=== PATIENT | male | born 1965 | race Two or more races ===

== ENCOUNTER 2025-02-22 19:23 | Emergency (ER) | payer MEDICAID, SELFPAY ==
[2025-02-22 19:25] VITALS: BMI 28.5
[2025-02-22 19:39] VITALS: BP 121/72; PULSE 106; RESP 18; TEMP 38.5; O2SAT 95
--- NOTE | 2025-02-22 20:01 | XR_ITS ---
Examination: CT chest with intravenous contrast CT abdomen with intravenous contrast CT pelvis with intravenous contrast 2-D coronal and sagittal reconstructions Time of exam: February 23, 2000 2503 hours INDICATIONS: Chest pain abdominal pain today CTDI: vol (mGy) : 8.68 DLP: (mGycm): 649 Technique: Multiple axial images of the chest, abdomen and pelvis with intravenous contrast, 3.0 mm slice thickness. Images obtained post intravenous injection Isovue 370 60 cc. 2-D sagittal and coronal reconstructions. Low dose protocols were performed. One or more of the following dose reduction techniques were used; automated exposure control, adjustment of the mA and/or KV according to patient size, use of iterative reconstruction technique. Findings: No thoracic aortic aneurysm dilatation No paratracheal tracheobronchial or bronchopulmonary adenopathy No pneumonia pulmonary edema or pleural disease No visualized liver or splenic lesion No gallstones Spleen is not enlarged No pancreatic or adrenal mass No renal or ureteral calculi, no hydronephrosis 8 mm fat-containing umbilical hernia Normal appendix No bowel obstruction No diverticulitis Prostatomegaly 3.5 cm Urinary bladder wall thickening up to 4 mm Small fat-containing umbilical hernia Grade 1 anterolisthesis of L4 on L5 IMPRESSION: No pneumonia, pulmonary edema or pleural disease No renal or ureteral calculi, no hydronephrosis. Normal appendix No bowel obstruction or diverticulitis Mild thickening of the urinary bladder wall, consider cystitis
--- NOTE | 2025-02-22 20:01 | XR_ITS ---
Examination: PA chest single view TECHNIQUE: Upright PA chest single view Examination date and time: February 22, 2025, 2031 hours INDICATION: Coughing for 4 days ago. FINDINGS: Normal heart size. No pneumonia or pulmonary edema. Mild osteopenia. IMPRESSION: No pneumonia or pulmonary edema
--- NOTE | 2025-02-22 20:43 | EDNOTE_ITS ---
Nausea/Vomit./Diarrhea-RME/HPI General Chief complaint: Flu Like Symptoms Stated complaint: COUGH, FEVER, DIARRHEA Time Seen by Provider: 02/22/25 20:00 Arrival date/time: 02/22/25 19:23 59M with no significant PMH presents to ED with 1 month of cough. Patient has not followed up with PCP, as he doesn't have one. Separately, patient went to [place] about 1.5 weeks ago and started having daily non-bloody diarrhea as well as fevers/chills. Limitations: no limitations Related Data Allergies Allergy/AdvReac Type Severity Reaction Status Date / Time No Known Allergies Allergy Verified 02/22/25 19:27 Review of Systems Review of Systems Systems Reviewed: All systems reviewed, normal except as documented Constitutional Constitutional: Reports system reviewed and no additional complaints, except as documented, Reports as per HPI, Reports chills, Reports fever(s) and Denies headache(s) ENT Ears, Nose, Mouth, and Throat: Denies disequilibrium and Denies headache(s) Cardiovascular Cardiovascular: Reports system reviewed and no additional complaints, except as documented, Denies chest pain and Denies dyspnea Respiratory Respiratory: Reports system reviewed and no additional complaints, except as documented, Reports as per HPI, Reports cough and Denies dyspnea Gastrointestinal Gastrointestinal: Reports system reviewed and no additional complaints, except as documented, Reports as per HPI, Reports abdominal pain, Reports diarrhea, Denies nausea and Denies vomiting Neurologic Neurologic: Reports system reviewed and no additional complaints, except as documented, Denies confusion, Denies disequilibrium and Denies headache(s) Psychiatric Psychiatric: Denies confusion Past Medical History Social History SMOKING STATUS: Never smoker ED Exam General Limitations: Present no limitations General appearance: Present alert and in no apparent distress Head Head exam: Present atraumatic Eye Eye exam: Present normal appearance, PERRL and EOMI ENT ENT exam: Present normal exam, normal oropharynx and mucous membranes moist Neck Neck exam: Present normal inspection, full ROM and trachea midline Chest Chest inspection: Present normal inspection and symmetric chest wall rise Respiratory Respiratory exam: Present normal lung sounds bilaterally Cardiovascular Cardiovascular exam: Present regular rate, normal rhythm and normal heart sounds Abdominal Exam Abdominal exam: Present soft, tenderness and normal bowel sounds Abdominal tenderness: Present mild Extremities Exam Extremities exam: Present normal inspection and full ROM Back Exam Back exam: Present normal inspection and full ROM Neurological Exam Neurological exam: Present alert, oriented X3 and CN II-XII intact Psychiatric Psychiatric exam: Present normal affect and normal mood Skin Skin exam: Present warm, dry, intact and normal color Course Quality Measures Possible source: pulmonary and GI tract/intra-abdominal Blood cultures ordered: yes Antibiotic ordered: Yes Pertinent labs: 02/22/25 20:39 Lactic Acid 0.9 mMol/L (0.4-2.0) Procalcitonin 0.14 ng/ml (0.0-0.49) sepsis and none Orders Category Date Time Status Bedside COVID-19 Antigen Test NOW Care 02/22/25 19:28 Completed Bedside Influenza A&B Antigen Test NOW Care 02/22/25 19:[address] Screening NOW Care 02/22/25 20:01 Completed Insert IV NOW Care 02/22/25 20:[address] chest abdomen pelvis w Stat Exams 02/22/25 20:01 Completed XR chest 1V portable Stat Exams 02/22/25 20:01 Completed Blood Culture (Lab) Stat Lab 02/22/25 20:44 Received CBC Stat Lab 02/22/25 20:39 Completed CMP [Comprehensive Metabolic Panel] Stat Lab 02/22/25 20:39 Completed Cocci Serology IgM with reflex to IgG [Cocci Serology, Lab 02/22/25 20:39 Received Unk History] Stat Lactate (Lactic Acid) Stat Lab 02/22/25 20:39 Completed Lipase Stat Lab 02/22/25 20:39 Completed Procalcitonin Stat Lab 02/22/25 20:39 Completed UA [Urinalysis] Stat Lab 02/22/25 21:45 Completed Urine Culture Stat Lab 02/22/25 21:45 Received Acetaminophen Tab [Tylenol ES Tab] Med 02/22/25 20:38 Discontinued 1,000 mg PO X1 ONE Sodium Chloride 0.9% 1000 ml [Ns] 1,000 ml Med 02/22/25 20:01 Discontinued IV 999 mls/hr cefTRIAXone/D5w 1gm IV premix [Rocephin/D5w 1gm IV Med 02/22/25 20:02 Discontinued premix] 1 gm in 50 ml IV X1 Vital Signs Vital signs: Vital Signs Temperature 101.3 F H 02/22/25 19:39 Pulse Rate 106 H 02/22/25 19:39 Respiratory Rate 18 02/22/25 19:39 Blood Pressure 121/72 02/22/25 19:39 Pulse Oximetry (%) 95 02/22/25 19:39 Oxygen Delivery Method Room Air 02/22/25 19:39 O2 at 95% on RA and WNLs Nausea/Vomiting/Diarrhea MDM Narrative MDM Narrative:: 59M with no significant PMH presents to ED with 1 month of cough. Patient has not followed up with PCP, as he doesn't have one. Separately, patient went to [place] about 1.5 weeks ago and started having daily non-bloody diarrhea as well as fevers/chills. Physical exam reveals clear lungs. Normal WOB. Mild gen ab tenderness. Patient is febrile, but does not appear toxic. Sepsis alert called. CXR unremarkable. CT unremarkable. No leukocytosis. Procal/lactate normal. CMP unremarkable. UA mild dehydration. Upon assessment, patient felt better and temp was reduced. Likely viral gastroenteritis. Patient was unable to provide stool sample, but states he will follow-up with PCP. Patient data External records reviewed:: None Clinical information provided by:: patient Social determinants that could affect healthcare access:: none Patient has the following chronic illnesses:: none How is presenting disease/condition affected by chronic disease/condition?: no chronic disease Evaluation data The following diagnostics were reviewed and interpreted by me:: lab results and radiology exam(s) Lab and/or radiology exams considered but not ordered:: ordered Interpretation Summary: above Medications / Prescriptions Medications / Prescriptions considered but not ordered:: ordered Medication administrations:: Medication Administration History Discontinued Medications Acetaminophen (Acetaminophen 500 Mg Tablet) 1,000 mg PO X1 ONE Stop: 02/22/25 20:39 Last Admin: 02/22/25 21:12 Dose: 1,000 mg Documented By: GHISLAINE Sodium Chloride (Ns) 1,000 mls @ 999 mls/hr IV .Q1H1M ONE Stop: 02/22/25 21:01 Last Infusion: 02/22/25 23:09 Dose: Infused Documented By: Admin: 02/22/25 21:46 Dose: 999 mls/hr Documented By: GHISLAINE Ceftriaxone Sodium/Dextrose (Rocephin/D5w 1gm Iv Premix) 1 gm in 50 mls @ 100 mls/hr IV X1 ONE Stop: 02/22/25 20:31 Last Infusion: 02/22/25 22:35 Dose: Infused Documented By: Admin: 04/25/25 21:44 Dose: 100 mls/hr Documented By: JE above Consultations Consultation(s) initiated? (list below): No Diagnosis Nausea Differential Diagnosis: traveler's diarrhea, food poisoning, ga stroenteritis, clostridium difficile infection, drug-induced nausea and vomiting, dehydration and other (URI, CAP, viral infection) Most likely diagnosis given after review of the tests above:: gastroenteritis Admission Indicated Admission indicated?: not indicated Admission Request Was there a request for admission?: No Disposition Plan Disposition Plan: Discharge Discharge Attestation Discharge Attestation: The patient and all family members were given an opportunity to ask questions and understood the discharge instructions. Discharge instructions specifically effects, indications for sooner follow up or return to the emergency department, and the expected course of current diagnosis. Patient condition: Stable Discharge Plan Plan Patient Disposition: HOME (Self Care) Disposition Comment: Stable Prescriptions/Referrals Referrals: No Primary/Family,Physician [Primary Care Provider] - In 1 week Problem List Clinical Impression: Gastroenteritis Patient/Caregiver Discharge Instructions Education Materials: ED Diarrhea, Viral (Adult) Additional Instructions: Please follow-up with PCP within 24-48 hours and return immediately if symptoms worsen. See PCP for stool testing. Print Language: [place] Stand Alone Forms: Patient Portal Info Letter MARCK/PIOTR Supervising Physician MARCK/PIOTR Supervising Physician: Dr. Yates
[2025-02-22 20:53] VITALS: BP 139/85; PULSE 102; RESP 24; TEMP 39.4; O2SAT 95
[2025-02-22 21:05] LABS: Lactate (Lactic Acid) 0.9 mMol/L (0.4-2.0)
[2025-02-22 21:07] LABS: Basophils # (Auto) 0.1 Thou/mm3 (0.0-0.2); Basophils % (Auto) 1 % (0-2.5); Eosinophils # (Auto) 0.3 Thou/mm3 (0.0-0.5); Eosinophils % (Auto) 3 % (0-10); Hematocrit 40.1 % (41.0-53.0); Hemoglobin 13.8 g/dL (13.5-16.0); Immature Granulocytes % (Auto) 0 % (0-0); Immature Granulocytes Auto 0.03 Thou/mm3 (0.00-0.00); Lymphocytes # (Auto) 1.7 Thou/mm3 (1.0-4.8); Lymphocytes % (Auto) 21 % (10-50); Mean Corpuscular HGB Conc 34.4 g/dl (31.0-37.0); Mean Corpuscular Hemoglobin 29.9 pg (25.0-35.0); Mean Corpuscular Volume 87 fL (80-100); Monocytes # (Auto) 0.8 Thou/mm3 (0.0-0.8); Monocytes % (Auto) 9 % (0-12); Neutrophils # (Auto) 5.4 Thou/mm3 (1.8-7.7); Neutrophils % (Auto) 66 % (37-80); Nucleated Red Blood Cell % 0 /100 WBC (0); Platelet Count 278 Thou/mm3 (140-440); RDW Standard Deviation 38.5 fL (35.1-43.9); Red Blood Count 4.62 Miln/mm3 (4.50-5.90); White Blood Count 8.3 Thou/mm3 (3.8-10.6)
[2025-02-22 21:12] VITALS: TEMP 39.4
[2025-02-22] MEDS: ACETAMINOPHEN 500 MG TABLET 1000 MG PO (21:12)
[2025-02-22 21:38] LABS: Alanine Aminotransferase 35 U/L (10-49); Albumin, Serum 4.4 gm/dL (3.5-5.0); Albumin/Globulin Ratio 1.4 (1.2-2.2); Alkaline Phosphatase 106 U/L (46-116); Anion Gap 9 (7-16); Aspartate Amino Transferase 27 U/L (0-34); BUN/Creatinine Ratio 13 Ratio (12-20); Bilirubin,Total 0.4 mg/dL (0.3-1.2); Blood Urea Nitrogen 14 mg/dL (9-23); Calcium 9.2 mg/dL (8.3-10.6); Calcium (Corrected) 9.2 mg/dL (8.5-10.1); Chloride 103 mMol/L (98-107); Creatinine (Component) 1.1 mg/dL (0.6-1.3); Estimated Creatinine Clearance 76.2 mL/min (>60); Globulin 3.1 gm/dL (2.3-3.5); Glucose 100 mg/dL (74-106); Lipase 38 U/L (12-53); Osmolality,Calculated 268 (275-295); Potassium 3.6 mMol/L (3.4-5.1); Procalcitonin 0.14 ng/ml (0.0-0.49); Sodium 134 mMol/L (136-145); Total Protein 7.5 gm/dL (5.7-8.2); eGFR > 60 See Note
[2025-02-22] MEDS: cefTRIAXone/D5w 1gm IV premix 1 GM/50 ML BAG IV (21:44)
[2025-02-22] MEDS: SODIUM CHLORIDE 0.9% 1000 ML 1,000 ML 999 ML IV (21:46)
[2025-02-22 21:58] LABS: Collection Type, Urine Clean Catch; Squamous Epithelial Cell,Urine 0 /hpf (0-5)
[2025-02-22 22:01] LABS: Bilirubin,Urine Negative (Negative); Blood,Urine Negative (Negative); Clarity,Urine Clear (Clear/Hazy); Color,Urine Lt-Yellow (Lt Yel-Yel); Glucose, Urine Negative (Negative); Ketones,Urine 1+ (Negative); Leukocyte Esterase,Urine Negative (Negative); Nitrite,Urine Negative (Negative); Protein,Urine Negative (Neg - Trace); RBC,Urine 1 /hpf (0-3); Urobilinogen,Urine Negative mg/dL (0.0-1.0); WBC,Urine 1 /hpf (0-5)
[2025-02-22 22:16] VITALS: BP 115/74; PULSE 83; RESP 19; TEMP 37.6; O2SAT 96
[2025-02-22 22:35] VITALS: TEMP 37.2
[2025-02-23 00:24] VITALS: BP 117/66; PULSE 63; RESP 18; TEMP 36.6; O2SAT 96
[2025-02-23 15:22] LABS: Cocci Serology, IgM Negative (Negative)
[2025-02-25 14:38] LABS: Cocci Serology, IgG Negative (Negative)
== END 2025-02-23 00:57 | disposition home or self-care (01) ==
PROVIDERS: Physician Assistant; Emergency Provider Emergency Medicine
DX: K52.9 Noninfective gastroenteritis and colitis, unspecified (principal); R05.9 Cough, unspecified
CPT/HCPCS: 36415; 71045; 71260; 74177; 80053; 81001; 83605; 83690; 84145; 85025; 86331; 86635; 87015; 87040; 87045; 87046; 87086; 87205; 87400; 87811; 87899; 96365; 99285; A4649; J0696; J7030; Q9967; A9270